=== PATIENT | female | born 1970 | race Caucasian/White ===

== ENCOUNTER 2023-02-11 12:41 | Outpatient (CLI) | payer OTHER, SELFPAY ==
--- NOTE | 2023-02-11 13:00 | CRLHL7_ITS ---
For Patients: As a result of the Century Cures Act, medical imaging exams and procedure reports are released immediately into your electronic medical record. You may view this report before your referring provider. If you have questions, please contact your health care provider. BILATERAL SCREENING MAMMOGRAM WITH COMPUTER-AIDED DETECTION AND TOMOSYNTHESIS TECHNIQUE: CC and MLO views were obtained. These mammographic images have been obtained using full-field digital technique. These mammographic images were interpreted with the benefit of computer-aided detection. Breast tomosynthesis was used in this interpretation. COMPARISON FILM: 02/09/22, 01/13/21, 12/28/19. FINDINGS: There are scattered areas of fibroglandular density. IMPRESSION: There is no radiographic evidence for malignancy. ASSESSMENT: BI-RADS Category 1: Negative RECOMMENDATION: Routine screening mammogram in 1 year. A lay language report of this examination will be provided to the patient. ANTHONY GALLAGHER M.D. Diagnostic Radiologist [email or web address] Transcribed: 3:[address]/Dictated by: Anthony Gallagher MD @ 02/12/2023 11:44:00 AM (Electronically Signed)
== END 2023-02-11 12:42 | disposition home or self-care (01) ==
LOC: MAMMO 12:42
PROVIDERS: PCP Physician Assistant Medical; Visit Provider Physician Assistant Medical
DX: Z12.31 Encounter for screening mammogram for malignant neoplasm of breast (principal)
CPT/HCPCS: 77063; 77067

== ENCOUNTER 2023-07-26 14:53 | Outpatient (CLI) | payer OTHER, SELFPAY | END 2023-07-26 14:54 | disposition home or self-care (01) | PROVIDERS: PCP Physician Assistant Medical; Visit Provider Physician Assistant Medical | DX: Z00.00 Encounter for general adult medical examination without abnormal findings (principal); N95.9 Unspecified menopausal and perimenopausal disorder; Z13.6 Encounter for screening for cardiovascular disorders | CPT/HCPCS: 80053; 80061; 84443 ==

== ENCOUNTER 2024-02-14 09:02 | Outpatient (CLI) | payer OTHER, SELFPAY ==
--- NOTE | 2024-02-14 09:15 | MM_ITS ---
Patient: TRINY CATALAN Facility:?[facility] Patient ID:?[id number] Site Patient ID:?[id number]. Site :?[id number] Study:?XRay-Breast Bilateral 3D W/CAD-02/14/2024 10:59:24 AM Ordering Physician:Mekhi Final Report: BILATERAL SCREENING MAMMOGRAM WITH COMPUTER-AIDED DETECTION AND TOMOSYNTHESIS TECHNIQUE: CC and MLO views were obtained. These mammographic images have been obtained using full-field digital technique. These mammographic images were interpreted with the benefit of computer-aided detection. Breast Tomosynthesis was used in this interpretation. COMPARISON FILM: 02/11/23, 02/09/22, 01/13/21. FINDINGS: There are scattered areas of fibroglandular density. IMPRESSION: There is no radiographic evidence for malignancy. ASSESSMENT: BI-RADS Category 1: Negative RECOMMENDATION: Routine screening mammogram in 1 year. A lay language report of this examination will be provided to the patient. Anthony Hummel M.D. Diagnostic Radiologist [email or web address] LUCIA/sp R& Transcribed: 1:41 [address]/Dictated by: Anthony Hummel MD @ 02/14/2024 12:08:00 PM Signed by:?Anthony Hummel MD @02/14/2024 2:49:37 PM (Electronic Signature)
== END 2024-02-14 09:03 | disposition home or self-care (01) ==
LOC: MAMMO 09:03
PROVIDERS: PCP Physician Assistant Medical; Visit Provider Physician Assistant Medical
DX: Z12.31 Encounter for screening mammogram for malignant neoplasm of breast (principal)
CPT/HCPCS: 77063; 77067

== ENCOUNTER 2025-05-31 15:05 | Outpatient (CLI) | payer OTHER, SELFPAY ==
--- NOTE | 2025-05-31 15:20 | CRLHL7_ITS ---
For Patients: As a result of the Century Cures Act, medical imaging exams and procedure reports are released immediately into your electronic medical record. You may view this report before your referring provider. If you have questions, please contact your health care provider. INDICATION: BILATERAL SCREENING MAMMOGRAM, ASYMPTOMATIC 55 Y/O FEMALE COMPARISON: 02/14/2024, 02/11/2023, 02/09/2022 TECHNIQUE: Digital mammogram in CC and MLO projections including computer-aided detection (CAD) and tomosynthesis. BREAST COMPOSITION: There are scattered areas of fibroglandular density. FINDINGS: No suspicious findings. ASSESSMENT: BI-RADS 1 Negative RECOMMENDATION: Annual screening mammogram. A lay language report of this examination will be provided to the patient. Dictated by: Janelle Baer MD @ 06/01/2025 11:27:40 (Electronically Signed)
== END 2025-05-31 15:06 | disposition home or self-care (01) ==
LOC: MAMMO 15:05
PROVIDERS: PCP Physician Assistant Medical; Visit Provider Registered Nurse
DX: Z12.31 Encounter for screening mammogram for malignant neoplasm of breast (principal)
CPT/HCPCS: 77063; 77067

== ENCOUNTER 2025-06-24 09:16 | Outpatient (CLI) | payer OTHER, SELFPAY | END 2025-06-24 09:17 | disposition home or self-care (01) | PROVIDERS: PCP Physician Assistant Medical; Visit Provider Registered Nurse | DX: L65.9 Nonscarring hair loss, unspecified (principal); N95.1 Menopausal and female climacteric states; Z13.1 Encounter for screening for diabetes mellitus; Z13.6 Encounter for screening for cardiovascular disorders | CPT/HCPCS: 80061; 82728; 82947; 84443 ==